=== PATIENT | male | born 1985 | race African-American/Black ===

== ENCOUNTER 2025-02-13 16:04 | Emergency (ER) | payer SELFPAY ==
[2025-02-13 17:43] LABS: #Basophils 0.08 10x3/uL (0.0-0.2); #Eosinophils 0.11 10x3/uL (0.0-0.5); #Monocytes 0.64 10x3/uL (0.0-1.1); #Neutrophils 8.07 10x3/uL (1.5-8.4); %Basophils 0.7 % (0.0-2.0); %Eosinophils 0.9 % (0.0-6.0); %Lymphocytes 24.9 % (18.0-47.0); %Monocytes 5.4 % (0.0-10.0); %Neutrophils 67.8 % (40.0-75.0); Hematocrit 42.0 % (38.8-50.0); Hemoglobin 13.2 g/dL (13.5-17.5); Mean Corpuscular Hemoglobin 28.1 pg (27.0-33.0); Mean Corpuscular Volume 89.4 fL (81.2-95.1); Platelet Count 323 10x3/uL (150-450); Red Blood Cell (RBC) Count 4.70 10x6/uL (4.32-5.72); White Blood Cell (WBC) Count 11.91 10x3/uL (3.5-10.5)
[2025-02-13 17:59] LABS: ALT (SGPT) 15 U/L (Less than 45); AST (SGOT) 17 U/L (11-34); Albumin 3.6 g/dL (3.1-4.5); Alkaline Phosphatase 81 U/L (40-110); Anion Gap 12 mmol/L (10-20); BUN (Urea Nitrogen) 8 mg/dL (8.9-20.6); Bilirubin, Total 0.6 mg/dL (0.3-1.2); Calc. Creatinine Clearance 0 mL/min (70-130); Calcium 9.5 mg/dL (7.8-10.44); Carbon Dioxide 29 mmol/L (22-29); Chloride 103 mmol/L (98-107); Globulin 4.6 g/dL (2.4-3.5); Glucose 97 mg/dL (70-105); Lipase 17 U/L (8-78); Potassium 4.2 mmol/L (3.5-5.1); Sodium 140 mmol/L (136-145)
[2025-02-13 18:03] LABS: Troponin I Less than 0.010 ng/mL (< 0.028)
[2025-02-13] MEDS ORDERED: Cyclobenzaprine 10 MG TAB ONE (18:08)
[2025-02-13] MEDS ORDERED: Ketorolac Tromethamine 30 MG (1 mL) VIAL ONE (18:08)
[2025-02-13] MEDS ORDERED: Dexamethasone 10 MG/ML VIAL ONE (18:24)
== END 2025-02-13 18:18 | disposition home or self-care (01) ==
LOC: CSHERS 16:04
DX: M54.31 Sciatica, right side (principal)
CPT/HCPCS: 36415; 71045; 80053; 83690; 84484; 85025; 93005; 96372; J1100; J1885